=== PATIENT | female | born 1970 | race Caucasian/White ===

== ENCOUNTER → 2017-05-21 | Outpatient (CLI) | payer OTHER ==
[~2017-05-21] MED LIST: FLUO20CA25 PO; LINA5TAB PO; PGLT30T PO; [UNRECOGNIZED DRUG - REMARK]
--- NOTE | 2017-05-21 11:06 | Diagnostic Imaging Report ---
INDICATION: Cough. Time of exam: 11:06 AM Correlation is made with prior study 01/31/2011. The heart size is normal. The lungs are clear. The pulmonary vascularity is normal. No infiltrate, effusion or pneumothorax is seen. IMPRESSION: No acute cardiopulmonary process is detected. Report was called to Urszula Sagastume by sarina at 11:07 am. Dictated by: Dictated on workstation # [id number]
== END ==
LOC: CARD 10:17
PROVIDERS: ATTEND Nurse Practitioner Family
DX: R07.9 Chest pain, unspecified (principal)
CPT/HCPCS: 71046; 93005

== ENCOUNTER 2017-10-16 09:08 | Emergency (ER) | payer BC, OTHER ==
[~2017-10-16] VITALS: Ht 167.6 cm; Wt 87.1 kg
--- OUTSIDE RECORDS SUMMARY | 2017-10-16 09:14 | XMS REPORT ---
Author Author YENNIFER DILLON Organization [facility] Address [address] [place] [address] Care Team Providers Care Informatics Coordinator Name Role Phone DILLON DE OLIVEIRA Unavailable PROBLEMS Unknown Problems ALLERGIES Substance Reaction Event Type Date Status Penicillin G Sodium Unknown Drug Allergy Mar, Active SOCIAL HISTORY No smoking Hx information available PLAN OF CARE Activity Details Follow Up prn Reason: VITAL SIGNS Height 66 in 2016-04-11 Weight 193.0 lbs 2016-04-11 Temperature 98.4 degrees Fahrenheit 2016-04-11 Heart Rate 92 bpm 2016-04-11 Respiratory Rate 18 2016-04-11 BMI 31.15 kg/m2 2016-04-11 Blood pressure systolic 112 mmHg 2016-04-11 Blood pressure diastolic 70 mmHg 2016-04-11 MEDICATIONS Medication Instructions Dosage Frequency Start Date End Date Duration Status Janumet XR 100-1000 MG Orally Once a day 1 tablet with evening meal 24h Active Estropipate 1.5 MG Orally Daily 1 tablet 24h Active Fenofibrate 145 MG Orally Once a day 1 tablet 24h Active Victoza 18 MG/3ML Subcutaneous Once a day 0.2 ml 24h Active Glimepiride 2 MG Orally Once a day 2 tablet with breakfast or the first main meal of the day 24h Active RESULTS Name Result Date Reference Range Xray : Foot, Left 3 views (IN HOUSE) 2016-04-11 PROCEDURES Procedure Date Ordered Related Diagnosis Body Site X-RAY EXAM OF FOOT Apr 11, 2016 Office Visit, Est Pt., Level 3 Apr 11, 2016 IMMUNIZATIONS No Known Immunizations
[2017-10-16] MEDS ORDERED: GLIM1TAB PO (09:23)
[2017-10-16] MEDS ORDERED: ESTR0.755 PO (09:23)
[2017-10-16] MEDS ORDERED: FENO40TA4 PO (09:23)
[2017-10-16] MEDS ORDERED: INSU3INS SQ (09:23)
[2017-10-16] MEDS ORDERED: SITA1TBM7 PO (09:24)
--- NOTE | 2017-10-16 10:02 | Diagnostic Imaging Report ---
INDICATION: Injury, pain and swelling of the lateral left ankle 3 views of the left ankle show no fracture, dislocation or other acute bony abnormality. There are changes of prior ORIF of the distal fibula and of the medial malleolus. There is soft tissue swelling laterally. IMPRESSION: Swelling. No acute bony abnormality is seen. Dictated by: Dictated on workstation # [id number]
--- NOTE | 2017-10-16 10:06 | Diagnostic Imaging Report ---
INDICATION: Trauma, left foot pain and swelling 3 views of the left foot show no fracture, dislocation or other acute abnormality. IMPRESSION: No acute abnormality is seen. Dictated by: Dictated on workstation # [id number]
--- NOTE | 2017-10-16 10:36 | ED Fall/Injury ---
General Chief Complaint: Lower Extremity Stated Complaint: L ANKLE INJ Nursing Triage Note: PT STATES FELL DOWN STEP AND INJURED L ANKLE, ICE PACK APPLIED Source: patient Exam Limitations: no limitations History of Present Illness Date Seen by Provider: Oct 16, 2017 Time Seen by Provider: 09:21 Initial Comments This 47-year-old woman presents to the emergency room with a left ankle injury. She was walking on concrete stairs when she fell and rolled her ankle in an inverted fashion. She has pain and swelling of the ankle but denies any other injury. She did strike her head or lose consciousness. She has not been able to ambulate or adequately bear weight. Patient has had surgery on this ankle previously for fracture. Allergies and Home Medications Allergies Coded Allergies: Penicillins (Unverified Allergy, 01/29/11) Home Medications Fluoxetine Hcl 20 Mg Capsule, 1 EACH PO DAILY, (Reported) Patient Home Medication List Home Medication List Reviewed: Yes Review of Systems Constitutional: no symptoms reported Eyes: No Symptoms Reported Ears, Nose, Mouth, Throat: no symptoms reported Respiratory: no symptoms reported Cardiovascular: no symptoms reported Gastrointestinal: no symptoms reported Genitourinary: no symptoms reported Musculoskeletal: see HPI Skin: no symptoms reported Psychiatric/Neurological: No Symptoms Reported Past Nhuqxux-Odesuf-Qoxtkt Hx Patient Social History Alcohol Use: Denies Use Recreational Drug Use: No Smoking Status: Never a Smoker Recent Foreign Travel: No Contact w/Someone Who Travel: No Recent Infectious Disease Expo: No Recent Hopitalizations: No Physical Abuse: No Sexual Abuse: No Past Medical History Surgeries: Yes Orthopedic Respiratory: No Cardiac: No Neurological: No : No Reproductive Disorders: Yes (DUB) Gastrointestinal: Yes Musculoskeletal: Yes Endocrine: Yes HEENT: No Cancer: No Psychosocial: No Nursing Suicide Risk Score: 0 Blood Disorders: No Physical Exam Vital Signs Vital Signs - First Documented 10/16/17 09:10 Temp 97.1 Pulse 95 Resp 18 B/P (MAP) 139/81 (100) Pulse Ox 96 Capillary Refill : Less Than 3 Seconds General Appearance: WD/WN, no apparent distress HEENT: PERRL/EOMI, normal ENT inspection Cardiovascular: regular rate, rhythm, no edema, no murmur Respiratory: lungs clear, normal breath sounds, no respiratory distress Extremities: normal capillary refill, other (There is tenderness and swelling over the lateral malleolus. Tenderness over the lateral foot as well. Decreased range of motion. Distal sensation and range of motion intact. Normal pedal pulses.) Neurologic/Psychiatric: investor relations specialist II-XII nml as tested, no motor/sensory deficits, alert, normal mood/affect, oriented x 3 Skin: normal color, warm/dry Ruddy Coma Score Best Eye Response: (4) Open Spontaneously Best Verbal Response: (5) Oriented Best Motor Response: (6) Obeys Commands Ruddy Total: 15 Progress/Results/Core Measures Results/Orders My Orders Orders - CLARA ZAMORA MD Foot, Left, 3 Views (10/16/17 09:29) Ankle, Left, 3 Views (10/16/17 09:29) Crutches (10/16/17 11:07) Vital Signs/I&O 10/16/17 10/16/17 09:10 11:15 Temp 97.1 97.1 Pulse 95 95 Resp 18 B/P (MAP) 139/81 (100) 139/81 (100) Pulse Ox 96 96 Blood Pressure Mean: 100 Progress Progress Note : Progress Note X-rays viewed by me and reports reviewed. No acute fractures were identified. Crutches were dispensed. Moises wrap was applied to the ankle. See discharge instructions. Diagnostic Imaging Diagonstic Imaging: Xray Plain Films/CT/US/NM/MRI: ankle Comments Left ankle x-ray reviewed by me and report reviewed. See report below: NAME: TOMASA COMER [facility] REC#: [id number] PT STATUS: REG ER : 1970 PHYSICIAN: CLARA ZAMORA MD ADMIT DATE: 10/16/17/ER Signed Date of Exam: 10/16/17 ANKLE, LEFT, 3 VIEWS INDICATION: Injury, pain and swelling of the lateral left ankle 3 views of the left ankle show no fracture, dislocation or other acute bony abnormality. There are changes of prior ORIF of the distal fibula and of the medial malleolus. There is soft tissue swelling laterally. IMPRESSION: Swelling. No acute bony abnormality is seen. Dictated by: Dictated on workstation # [id number] Dict: 10/16/17 0959 Trans: 10/16/17 1009 Interpreted by: KATARINA LYON MD Electronically signed by: KATARINA LYON MD 10/16/17 1009 Diagonstic Imaging: Xray Plain Films/CT/US/NM/MRI: other (Left foot) Comments X-ray left foot viewed by me and report reviewed. See report below: NAME: TOMASA COMER [facility] REC#: [id number] PT STATUS: REG ER : 1970 PHYSICIAN: CLARA ZAMORA MD ADMIT DATE: 10/16/17/ER Signed Date of Exam: 10/16/17 FOOT, LEFT, 3 VIEWS INDICATION: Trauma, left foot pain and swelling 3 views of the left foot show no fracture, dislocation or other acute abnormality. IMPRESSION: No acute abnormality is seen. Dictated by: Dictated on workstation # [id number] Dict: 10/16/17 1000 Trans: 10/16/17 1009 Interpreted by: KATARINA LYON MD Electronically signed by: KATARINA LYON MD 10/16/17 1009 Departure Impression Primary Impression: Left ankle sprain Qualified Codes: S93.402A - Sprain of unspecified ligament of left ankle, initial encounter Additional Impressions: Sprain of left foot Qualified Codes: S93.602A - Unspecified sprain of left foot, initial encounter Fall on stairs Qualified Codes: W10.9XXA - Fall (on) (from) unspecified stairs and steps, initial encounter Disposition: 01 HOME, SELF-CARE Condition: Stable Departure-Patient Inst. Decision time for Depature: 10:34 Referrals: JUAREZ EGAN MD, JACQUELINE S DO (PCP/Family) Primary Care Physician Patient Instructions: Ankle Sprain (DC) Add. Discharge Instructions: Rest, icing in 20 minute intervals, elevation, compressive wrapping, and NSAID medications such as ibuprofen should help with pain and swelling. You may take ibuprofen up to 600 mg every 6 hours as needed for pain. Add Tylenol ( acetaminophen) up to 1000 mg every 6 hours as needed for additional pain relief. Use crutches as needed for ambulation and gradually advance weightbearing and activity as tolerated. Use a supportive Velcro or lace up ankle brace when active for the next 6 weeks. Return to care if you have worsening symptoms. Follow-up with an orthopedic provider for re-evaluation if not improving rapidly over the next few days. All discharge instructions reviewed with patient and/or family. Voiced understanding. CLARA ZAMORA MD Oct 16, 2017 10:36
[2017-10-16 11:15] VITALS: BP 139/81
== END 2017-10-16 11:15 | disposition home or self-care (01) ==
LOC: EDUNIT# 09:08 → ER 09:09
DX: S93.402A Sprain of unspecified ligament of left ankle, initial encounter (principal); R40.2142 Coma scale, eyes open, spontaneous, at arrival to emergency department; R40.2252 Coma scale, best verbal response, oriented, at arrival to emergency department; R40.2362 Coma scale, best motor response, obeys commands, at arrival to emergency department; Z88.0 Allergy status to penicillin; Z87.448 Personal history of other diseases of urinary system; W10.8XXA Fall (on) (from) other stairs and steps, initial encounter; X50.0XXA Overexertion from strenuous movement or load, initial encounter
CPT/HCPCS: 73610; 73630

== ENCOUNTER → 2019-06-19 | Outpatient (CLI) | payer BC, OTHER ==
[~2019-06-19] MED LIST changes: +ESTR0.755 PO; +FENO40TA4 PO; +GLIM1TAB4 PO; +INSU3INS SQ; +SITA1TBM7 PO
--- NOTE | 2019-06-19 14:11 | Diagnostic Imaging Report ---
Indication: Routine screening. Comparison is made with prior mammogram from 02/06/2010. 2-D and 3-D bilateral screening mammography was performed with CAD. Both breasts are heterogeneously dense, limiting the sensitivity of mammography. There is an ovoid density in the medial left breast at anterior to mid depth best seen on the cc view. No definite correlate on the MLO view is seen. Additional views and ultrasound are recommended. The right breast unremarkable. There are benign calcifications. No malignant appearing microcalcifications are seen. Axillae are unremarkable. IMPRESSION: BI-RADS 0 Left breast density. Additional views and ultrasound are recommended for further evaluation. ACR BI-RADS Category 0: Incomplete. (Needs additional imaging evaluation). Result letter will be mailed to the patient. Note: At least 10% of breast cancer is not imaged by mammography. Dictated by: Dictated on workstation # [id number]
== END ==
LOC: RAD 11:04
PROVIDERS: ATTEND Nurse Practitioner Primary Care
DX: Z12.31 Encounter for screening mammogram for malignant neoplasm of breast (principal)
CPT/HCPCS: 77067

== ENCOUNTER → 2019-07-05 | Outpatient (CLI) | payer BC ==
--- NOTE | 2019-07-05 09:01 | Diagnostic Imaging Report ---
INDICATION: Left breast density. Patient presents for additional views. COMPARISON: Correlation is made with the recent screening study from 06/19/2019. TECHNIQUE: Unilateral left 2D and 3D diagnostic mammography was performed including rolled CC, spot compression CC, and 90 degree lateral views as well as utilizing CAD. FINDINGS: The additional views show a persistent circumscribed slightly ovoid density 4 cm from the nipple just medial to the nipple line. This is not well seen on the 90 degree lateral view. Further evaluation with ultrasound is recommended. No suspicious calcifications are seen. IMPRESSION: Persistent density 4 cm from the nipple just medial to the nipple line on the CC views. Further evaluation with ultrasound is recommended and will be performed today. ACR BI-RADS Category 0: Incomplete. (Needs additional imaging evaluation). Result letter will be mailed to the patient. Note: At least 10% of breast cancer is not imaged by mammography. Dictated by: Dictated on workstation # [id number]
--- NOTE | 2019-07-05 10:47 | Diagnostic Imaging Report ---
INDICATION: Left breast density. COMPARISON: Correlation is made with the diagnostic mammogram from earlier this same day and the screening mammogram from 06/19/2019. TECHNIQUE: Sonographic interrogation of the inner left breast was performed. FINDINGS: There is a circumscribed ovoid hypoechoic nodule at the 10 o'clock location of the left breast 4 cm from the nipple. This measures 11 mm x 8 mm x 6 mm. This most likely accounts for the density noted mammographically. No other masses are detected. IMPRESSION: Circumscribed ovoid hypoechoic nodule at the 10 o'clock location of the left breast 4 cm from the nipple correlating to the density noted mammographically. This has fairly benign features and most likely represents a small fibroadenoma or complicated cyst. A followup ultrasound in 6 months is recommended to confirm stability. Consideration could also be given to performance of an ultrasound-guided biopsy. The results and recommendation options were discussed with the patient at the time of the exam. ACR BI-RADS Category 3: Probably benign findings. Dictated by: Dictated on workstation # [id number]
== END ==
LOC: RAD 08:38
PROVIDERS: ATTEND Nurse Practitioner Primary Care
DX: N63.22 Unspecified lump in the left breast, upper inner quadrant (principal)
CPT/HCPCS: 76642

== ENCOUNTER → 2020-08-30 | Outpatient (CLI) | payer BC ==
--- NOTE | 2020-09-02 09:10 | Diagnostic Imaging Report ---
INDICATION: Routine screening. COMPARISON: 06/19/2019. TECHNIQUE: 2D and 3D bilateral screening mammography was performed with CAD. FINDINGS: Both breasts are heterogeneously dense, limiting the sensitivity of mammography. The circumscribed density just medial to the nipple line at mid depth of the left breast is again noted and appears similar to the prior exam. A followup ultrasound was recommended after the previous diagnostic mammogram and ultrasound in June 2019. Reportedly, this was not performed. No other masses are seen. No malignant appearing microcalcifications are identified. The axillae are unremarkable. IMPRESSION: The circumscribed lesion in the left breast appears fairly similar mammographically; however, a followup left breast ultrasound is recommended for further characterization and remeasurement to ensure no change. ACR BI-RADS Category 0: Incomplete. (Needs additional imaging evaluation). Result letter will be mailed to the patient. Note: At least 10% of breast cancer is not imaged by mammography. Dictated by: Dictated on workstation # [id number]
== END ==
LOC: RAD 15:45
PROVIDERS: ATTEND Nurse Practitioner Family
DX: Z12.31 Encounter for screening mammogram for malignant neoplasm of breast (principal)
CPT/HCPCS: 77063; 77067

== ENCOUNTER → 2020-09-10 | Outpatient (CLI) | payer BC ==
--- NOTE | 2020-09-10 20:03 | Diagnostic Imaging Report ---
INDICATION: Six-month follow-up left breast mass. CORRELATION is made with breast ultrasound from 07/05/2019. FINDINGS: Sonographic interrogation of the 10:00 location of the left breast, 4 cm from the nipple again demonstrates a circumscribed hypoechoic solid nodule measuring 9 mm x 6 mm x 11 mm. This is stable when compared with prior exam. No new mass is detected. IMPRESSION: BI-RADS Category 3 Stable solid nodule at 10:00 location left breast, 4 cm from the nipple, again most likely a fibroadenoma. This now shows one year of stability. Additional six-month sonographic follow-up is recommended to show continued stability. ACR BI-RADS Category 3: Probably benign findings. Result letter will be mailed to the patient. Note: At least 10% of breast cancer is not imaged by mammography. Dictated by: Dictated on workstation # [id number]
== END ==
LOC: RAD 12:30
PROVIDERS: ATTEND Nurse Practitioner Family
DX: N63.22 Unspecified lump in the left breast, upper inner quadrant (principal)
CPT/HCPCS: 76642

== ENCOUNTER 2021-04-17 15:30 | Outpatient (RCR) | payer BC | END 2021-04-25 | disposition home or self-care (01) | PROVIDERS: ATTEND Family Medicine | DX: S43.492A Other sprain of left shoulder joint, initial encounter (principal); S43.421A Sprain of right rotator cuff capsule, initial encounter; E11.9 Type 2 diabetes mellitus without complications ==

== ENCOUNTER 2021-05-16 10:35 | Outpatient (CLI) | payer BC ==
[~2021-05-16] VITALS: Ht 167.6 cm; Wt 79.4 kg
[2021-05-16] MEDS ORDERED: ONDANSETRON 4 MG/2 ML (SDV) Z0FRAN IV PRN (10:45)
[2021-05-16] MEDS ORDERED: ACETAMINOPHEN 500 MG TAB (TYLENOL) PO PRN (10:45)
[2021-05-16] MEDS ORDERED: CASIRIVIMAB/IMDEVIMAB 1,200 MG in NS (IVPB) 50 ML IV ONE (10:45)
[2021-05-16] MEDS ORDERED: diphenhydrAMINE 50 MG/ML INJ (BENADRYL) IV PRN (10:45)
[2021-05-16] MEDS ORDERED: EPINEPHrine INJECTION 1 MG/ML AMP IM PRN (10:45)
[2021-05-16 10:48] VITALS: BP 130/85
[2021-05-16 12:13] VITALS: BP 103/62
== END 2021-05-16 12:13 | disposition home or self-care (01) ==
LOC: INFUSION 10:35
PROVIDERS: ATTEND Family Medicine
DX: U07.1 COVID-19 (principal)

== ENCOUNTER 2021-05-20 14:56 | Outpatient (RCR) | payer BC | END 2021-05-26 | disposition home or self-care (01) | PROVIDERS: ATTEND Family Medicine | DX: M25.512 Pain in left shoulder (principal); E11.9 Type 2 diabetes mellitus without complications ==

== ENCOUNTER → 2022-07-24 | Outpatient (CLI) | payer BC ==
[~2022-07-24] VITALS: Ht 167.6 cm; Wt 79.5 kg
[~2022-07-24] MED LIST changes: +LIDOCAINE 1% INJ 10 ML VIAL INJ ONE; +LIDOCAINE 1% INJ 10 ML VIAL ONE
--- NOTE | 2022-07-24 09:40 | Diagnostic Imaging Report ---
INDICATION: Palpable lump right breast as well as abnormal ultrasound. PROCEDURE: The patient presents for ultrasound-guided biopsy. The patient was brought to the sonographic suite and placed on the table in the supine position. Ultrasound imaging of the right breast was performed to evaluate appropriate entry site. Right breast was prepped and draped in the usual sterile fashion. A small amount of 1% lidocaine was utilized for local anesthesia. A total of 3 core biopsies were made of the hypoechoic nodule at the 11:00 location of the right breast, utilizing a 14-gauge Achieve needle. A marker clip was then deployed. Hemostasis was obtained using manual compression. The patient tolerated the procedure well and was sent for a post procedure mammogram in satisfactory condition. IMPRESSION: Successful ultrasound guided biopsy of the nodule at the 11:00 location of the right breast. Pathology results are currently pending. Dictated by: Dictated on workstation # [id number]
--- NOTE | 2022-07-24 15:19 | Diagnostic Imaging Report ---
INDICATION: Right breast biopsy. Unilateral right 2-D CC and ML mammography was performed after patient underwent ultrasound-guided biopsy. There is a marker clip identified in the upper and outer aspects of the right breast posterior depth, status post biopsy. IMPRESSION: Marker clip placement, status post ultrasound-guided biopsy. Dictated by: Dictated on workstation # [id number]
== END ==
LOC: RAD 08:45
PROVIDERS: ATTEND Nurse Practitioner Family
DX: N63.21 Unspecified lump in the left breast, upper outer quadrant (principal); R92.8 Other abnormal and inconclusive findings on diagnostic imaging of breast; Z98.82 Breast implant status
CPT/HCPCS: 19083; 77065; G0279